=== PATIENT | female | born 1960 | race Caucasian/White ===

== ENCOUNTER 2017-08-15 16:10 | Outpatient (CLI) | payer BC | END 2017-08-15 16:11 | disposition home or self-care (01) | LOC: BICMAMMO 16:10 | PROVIDERS: ATTEND Obstetrics & Gynecology | DX: Z12.31 Encounter for screening mammogram for malignant neoplasm of breast (principal) | CPT/HCPCS: 77063; 77067 ==

== ENCOUNTER 2019-05-13 09:04 | Observation (INO) | payer BC ==
[2019-05-09 12:11] VITALS: BMI 27.9
--- NOTE | 2019-05-09 14:18 | HP ---
DATE OF SURGERY: For May 13. HISTORY OF PRESENT ILLNESS: Ms. Armstrong is a 59-year-old white female with prior hysterectomy, who has been experiencing increased vaginal pressure symptoms. She also has difficulty at time evacuating her stool, requiring splinting techniques at times. She was seen in my office on December 20, 2018, for exam and also reported these findings. She has had a history of a benign hysterectomy 23 years prior. PAST MEDICAL HISTORY: Unremarkable. PAST SURGICAL HISTORY: Noted for partial hysterectomy 23 years ago. No abnormal Pap smear histories in the past. ALLERGIES: SHE HAS NO KNOWN DRUG ALLERGIES. CURRENT MEDICATIONS: Estradiol patch 0.75 mg per 24 hour thrice weekly. SOCIAL HISTORY: She is a nonsmoker. No excessive alcohol use. FAMILY HISTORY: Noncontributory. OB HISTORY: Two spontaneous vaginal deliveries. PHYSICAL EXAMINATION: VITAL SIGNS: Her height is 5 feet 6 inches, 170 pounds, BMI 27.4, pulse regular at 65, blood pressure 120/72, respiratory rate 18, and O2 saturations on room air 99%. HEENT: Within normal limits. NECK: Supple. No thyromegaly or masses. CHEST: Clear to auscultation. HEART: Regular rate and rhythm. S1 and S2 heart sounds. No murmurs, rubs, or gallops. ABDOMEN: Soft, nontender, and nondistended with no palpable masses. PELVIC: Vulva and vagina, there are no lesions seen. She does have an upper posterior vaginal wall defect upper one-half grade 3 with possible enterocele. The cervix and uterus are surgically absent. No pelvic masses are palpated on bimanual exam. ASSESSMENT: This is a 59-year-old white female with prior hysterectomy with symptomatic rectocele with possible enterocele on pelvic findings, desiring surgical repair. PLAN: To proceed with posterior repair with posterior colporrhaphy and possible enterocele plication and ligation. Risks and benefits of procedure have been discussed in detail. She is set for surgery on 05/13/2019. Job ID: [id number]
[2019-05-09 14:43] LABS: Hemoglobin 13.6 g/dL (12.0-16.0); Mean Corpuscular HGB CONC 33.7 g/dL (32.0-36.0); Mean Platelet Volume 8.6 fL (7.4-10.4); Platelet Count 246 thou/uL (130-400); RBC Distribution Width 11.6 % (11.5-14.5); Red Blood Cell (RBC) Count 4.24 mill/uL (4.20-5.40); White Blood Cell (WBC) Count 8.7 thou/uL (4.8-10.8)
[2019-05-13] MEDS ORDERED: Lidocaine 1% PF 5 ML VIAL ONE ×2 (09:29→17:19)
[2019-05-13] MEDS ORDERED: Glycopyrrolate 0.2 MG/ML 5 ML SYRINGE ONE (09:29)
[2019-05-13] MEDS ORDERED: Ketorolac Tromethamine 30 MG/ML VIAL ONE (09:29)
[2019-05-13] MEDS ORDERED: PHENYLEPHRINE-NS 100 MCG/ML 10 ML SYRINGE ONE (09:29)
[2019-05-13] MEDS ORDERED: Dexamethasone 20 MG/5 ML VIAL ONE (09:29)
[2019-05-13] MEDS ORDERED: ePHEDrine/0.9% NaCl/PF SYRINGE 50 mg/10 ml ONE (09:29)
[2019-05-13] MEDS ORDERED: Ondansetron PF 4 MG/2 ML Vial ONE (09:29)
[2019-05-13] MEDS ORDERED: PROPOFOL 200 MG/20 ML VIAL ONE (09:29)
[2019-05-13] MEDS ORDERED: Rocuronium Bromide 10 MG/ML (10ML VIAL) ONE (09:29)
[2019-05-13] MEDS ORDERED: Lidocaine 1% w/Epinephrine 1:100K 20 ML VIAL ONE (09:59)
[2019-05-13] MEDS ORDERED: Sodium Chloride 0.9% 0 ML ONE (09:59)
[2019-05-13] MEDS ORDERED: HYDROmorphone 0.5 MG/0.5 ML SYRINGE ONE (10:03)
[2019-05-13] MEDS ORDERED: Midazolam HCl 2 mg/2 ml Vial ONE (10:03)
[2019-05-13] MEDS ORDERED: Fentanyl 100 MCG/2 ML VIAL ONE (10:03)
[2019-05-13] MEDS ORDERED: Ondansetron HCl/PF 4 MG/2 ML Vial IVP PRN (11:51)
[2019-05-13] MEDS ORDERED: HYDROmorphone 2 MG/ML VIAL SLOW IVP PRN (11:51)
[2019-05-13] MEDS ORDERED: PACU-Morphine 4MG/ML VIAL SLOW IVP PRN (11:51)
[2019-05-13] MEDS ORDERED: Promethazine HCl 25 MG/ML VIAL SLOW IVP PRN (11:51)
[2019-05-13] MEDS ORDERED: Promethazine HCl 25 MG/ML VIAL IM PRN ×2 (11:51→11:55)
[2019-05-13] MEDS ORDERED: Simethicone Chewable 80 MG TAB PO PRN (11:55)
[2019-05-13] MEDS ORDERED: diphenhydrAMINE 25 MG CAP PO PRN (11:55)
[2019-05-13] MEDS ORDERED: Zolpidem Tartrate 5 MG TAB PO PRN (11:55)
[2019-05-13] MEDS ORDERED: Morphine 4 MG/ML VIAL SLOW IVP PRN (11:55)
[2019-05-13] MEDS ORDERED: Ondansetron PF 4 MG/2 ML Vial IVP PRN (11:55)
[2019-05-13] MEDS ORDERED: HYDROcodone/Acetaminophen 10/325 mg Tablet PO PRN ×2 (11:55)
[2019-05-13] MEDS ORDERED: ESTRADIOL 0.075 MG TD SCH (12:15)
[2019-05-13 13:12] VITALS: TEMP 97.6
[2019-05-13] MEDS: Ketorolac Tromethamine 30 MG/ML VIAL IVP SCH ×2 (13:14→18:12)
--- NOTE | 2019-05-13 18:25 | OP ---
DATE OF PROCEDURE: 05/13/2019 PREOPERATIVE DIAGNOSIS: A 59-year-old white female, prior hysterectomy with symptomatic grade 3 rectocele. POSTOPERATIVE DIAGNOSIS: A 59-year-old white female, prior hysterectomy with symptomatic grade 3 rectocele. PROCEDURE PERFORMED: Posterior repair. PUBLIC TRANSPORTATION INSPECTOR SURGEON: Siria Roger PA-C ANESTHESIA: General endotracheal. ESTIMATED BLOOD LOSS: 50 mL. COMPLICATIONS: None. COUNTS: Correct x2. ANTIBIOTICS: 2 g Ancef on-call to OR. DRAINS: Montoya catheter with clear urine present. FINDINGS: Grade 3 rectocele, upper mid half of the vagina. This was confirmed to be rectocele and not enterocele and rectal exam during the exam under anesthesia. DISPOSITION: To recovery room and then to floor and probable discharge later on this evening. DESCRIPTION OF PROCEDURE: The patient previously received informed consent in regard to surgery. She was taken back to the operating room, where she received a general endotracheal anesthetic agent without complications. She was placed in candy-cane stirrups and prepped and draped in usual sterile fashion in dorsal lithotomy position. Montoya catheter was placed. The patient was examined. Two Allis clamps were placed at the 4 and 8 o'clock position of the vaginal introitus. The posterior vaginal mucosa was infiltrated with 1% lidocaine with epinephrine up to the vaginal cuff line. At this time, a Metzenbaum scissors were then used to cut a midline incision in the posterior vagina at the introitus and this was carried up through the posterior vaginal mucosa up to the vaginal cuff line. Intermediate intervening Allis clamps were placed on the edge of the mucosa by my assistance enabling for dissection of the rectocele. A rectal exam was confirmed with the additional glove to confirm that there was no enterocele present. The enterocele was then dissected sharply and bluntly and the endopelvic fascial defect was identified. After the rectocele defect had been dissected and reduced, the endopelvic fascia was plicated with intermittent intervening [id number] sutures of 0 Vicryl suture, reducing the rectocele with plication in the pelvic fascia over the defect. Once this had been adequately reduced and secured, hemostasis was confirmed. The posterior vaginal mucosa was then closed with interrupted [id number] stitches of 2-0 Vicryl incorporating some of the endopelvic fascia. The excess vaginal mucosa had been trimmed prior to this. The vagina was then packed with a moistened Kerlix and rectal exam again was performed confirming no inadvertent stitches being placed in a rectal mucosa, which was clear. The patient was then awakened from anesthesia and transferred to recovery in stable condition. Job ID: [id number]
[2019-05-13] MEDS ORDERED: Docusate 100 MG CAP PO SCH (21:00)
[2019-05-13 21:10] VITALS: BP 112/70
[2019-05-14] MEDS ORDERED: Ibuprofen 600 MG TAB PO SCH (06:00)
== END 2019-05-13 21:05 | disposition home or self-care (01) ==
LOC: SDC 09:04 → 3SE 13:05 → INTOOBSV 13:05 → EDSTATUS 16:00
PROVIDERS: ADMIT Obstetrics & Gynecology; ATTEND Obstetrics & Gynecology
PROC: 0JQC0ZZ Repair Pelvic Region Subcutaneous Tissue and Fascia, Open Approach (ICD-10-PCS; principal; 2019-05-13)
DX: N81.6 Rectocele (principal); Z79.899 Other long term (current) drug therapy; Z90.710 Acquired absence of both cervix and uterus
CPT/HCPCS: 36415; 85027; 86850; 86900; 86901; 96374; G0378; J0690; J1100; J1170; J1885; J2001; J2250; J2405; J2704; J3010